=== PATIENT | male | born 1970 | race Caucasian/White ===

== ENCOUNTER 2023-12-27 11:07 | Emergency (ER) | payer MEDICAID ==
[~2023-12-27] VITALS: Ht 175.3 cm; Wt 79.0 kg
[2023-12-27 11:13] VITALS: TEMP 97.9
[2023-12-27 11:23] VITALS: BP 127/86; PULSE 84; RESP 16; O2SAT 96
[2023-12-27] MEDS ORDERED: CEPH500C PO (16:25)
== END 2023-12-27 16:29 | disposition home or self-care (01) ==
LOC: ER 11:07
DX: L02.416 Cutaneous abscess of left lower limb (principal)
CPT/HCPCS: 10060

== ENCOUNTER 2023-12-30 13:37 | Emergency (ER) | payer MEDICAID ==
[~2023-12-30] VITALS: Ht 182.9 cm; Wt 85.7 kg
[~2023-12-30 13:37] MED LIST: CEPH500C PO
[2023-12-30 14:46] VITALS: BP 116/79; PULSE 74; RESP 14; TEMP 97.4; O2SAT 96
== END 2023-12-30 15:04 | disposition home or self-care (01) ==
LOC: ER 13:37
DX: L02.31 Cutaneous abscess of buttock (principal); E78.5 Hyperlipidemia, unspecified; I10 Essential (primary) hypertension; Z48.817 Encounter for surgical aftercare following surgery on the skin and subcutaneous tissue